=== PATIENT | female | born 1955 | race Caucasian/White ===

== ENCOUNTER → 2017-08-12 | Outpatient (CLI) | payer OTHER ==
[~2017-08-12] MED LIST: ASPI81TA85 PO; CALC500T49 PO; COLA100C5 PO; HYDR-3713 PO; MULT1TAB9 PO; PERC5TAB12 PO; RAMI25CA PO; SALONPAS PAIN TOP; SIMV20TA2 PO; TYLE325T5 PO; ZYRT10CA PO; [UNRECOGNIZED DRUG - CODE] PO
--- NOTE | 2017-08-12 15:03 | REPMRS ---
Patient History The patient states she had a clinical breast exam in 09/22 Patient is postmenopausal and is nulliparous. No known family history of cancer. Took hormonal contraceptives for 1 year. Taking estrogen for 7 years. Digital Woman Screen Mammo: August 12, 2017 - Exam #: [id number] Bilateral CC and MLO view(s) were taken. Technologist: Scarlet Álvarez, Technologist Prior study comparison: August 10, 2016, digital woman screen mammo performed at [facility]. July 31, 2015, digital woman screen mammo performed at [facility]. July 16, 2014, bilateral bilat screen digital mammo, performed at [facility] ([facility]). July 07, 2013, bilateral bilat screen digital mammo, performed at [facility] ([facility]). FINDINGS: The breast tissue is heterogeneously dense. This may lower the sensitivity of mammography. There has been no change in the appearance of the mammogram from the prior studies. There is a moderate amount of residual fibroglandular tissue which is fairly symmetric. There is no interval development of dominant mass, architectural distortion, or clustered microcalcification typical of malignancy. Scattered lymph nodes are seen in the left axilla. A few coarse benign appearing calcifications are present. No significant changes when compared with prior studies. ASSESSMENT: BI-RADS/ACR category 2 mammogram. Benign finding(s). Recommendation Routine screening mammogram in 1 year (for women over age 40). This mammogram was interpreted with the aid of an FDA-approved computer-aided dectection system. A. Negative x-ray reports should not delay biopsy if a dominant or clinically suspicious mass is present. B. Four to eight percent of cancers are not identified by mammography. C. Adenosis and dense breast may obscure an underlying neoplasm. Electronically Signed By: Shaun Larson MD 08/12/17 [id number]
== END ==
LOC: M WHC 13:19
PROVIDERS: ATTEND Obstetrics & Gynecology
DX: Z12.31 Encounter for screening mammogram for malignant neoplasm of breast (principal); R92.8 Other abnormal and inconclusive findings on diagnostic imaging of breast; Z78.0 Asymptomatic menopausal state; Z92.0 Personal history of contraception; Z79.890 Hormone replacement therapy

== ENCOUNTER 2018-01-10 12:26 | Day surgery (SDC) | payer OTHER ==
[2018-01-10] MEDS: NS 1,000 ML IV (12:45)
[2018-01-10] MEDS ORDERED: PROPOFOL 200 MG/20 ML VIAL As Ordered (13:52)
== END 2018-01-10 14:51 | disposition home or self-care (01) ==
LOC: M OPP 12:26
DX: Z12.11 Encounter for screening for malignant neoplasm of colon (principal); D12.5 Benign neoplasm of sigmoid colon; D12.3 Benign neoplasm of transverse colon; K64.0 First degree hemorrhoids; K57.30 Diverticulosis of large intestine without perforation or abscess without bleeding; I10 Essential (primary) hypertension; E78.5 Hyperlipidemia, unspecified; M54.30 Sciatica, unspecified side; Z87.442 Personal history of urinary calculi; Z79.82 Long term (current) use of aspirin; Z79.899 Other long term (current) drug therapy; Z87.891 Personal history of nicotine dependence
CPT/HCPCS: 45385

== ENCOUNTER → 2018-08-15 | Outpatient (CLI) | payer OTHER | LOC: M WHC 09:49 | DX: Z12.31 Encounter for screening mammogram for malignant neoplasm of breast (principal); Z78.0 Asymptomatic menopausal state; Z92.0 Personal history of contraception; Z92.23 Personal history of estrogen therapy | CPT/HCPCS: 77067 ==

== ENCOUNTER → 2018-11-09 | Outpatient (REF) | payer OTHER ==
[~2018-11-09] MED LIST changes: +ASPI1TAB PO; +ESTR1DIS3; +FLON1SPR; +OLOP0.1D OU; +PRESCAP6; +RAMI1CAP22 PO; -RAMI25CA PO
[2018-11-09 20:45] LABS: BACTERIA, URINE AUTO 1+ (NEGATIVE); MUCUS, URINE SMALL (NEGATIVE); RBC, URINE AUTO 3 /HPF (0-3); SQUAMOUS EPITHELIAL CELL UR AU 1 /HPF (0-6); WBC, URINE AUTO 1 /HPF (0-3)
== END ==
LOC: M LAB REF 16:07
PROVIDERS: ATTEND Internal Medicine
DX: R31.9 Hematuria, unspecified (principal)

== ENCOUNTER → 2018-11-30 | Outpatient (CLI) | payer OTHER ==
--- NOTE | 2018-12-06 08:29 | DEXA ---
AP SPINE L1 - L4 1.280 0.7 2.0 LT FEMUR TOTAL 0.866 -1.1 -0.2 LT NECK 0.776 -1.9 -0.6 RT FEMUR TOTAL 0.883 -1.0 0.0 RT NECK 0.833 -1.5 -0.2 TOTAL BODY TOTAL OTHER COMMENTS: Normal bone densitometry of the spine. There is low bone density of the hips. The density of the spine has increased 6.7% since 07/16/2014. The density of the left hip has increased 5.6% since 07/16/2014. The density of the right hip has increased 2.8% since 07/16/2014. The increased density of the spine does represent a significant change. The increased density of the left hip does represent a significant change. The increased density of the right hip does represent a significant change. FOLLOW-UP: Recommendation for the next bone density exam: 2 years. MARIA GUADALUPE
== END ==
LOC: M WHC 12:57
PROVIDERS: ATTEND Internal Medicine
DX: Z13.820 Encounter for screening for osteoporosis (principal); M85.89 Other specified disorders of bone density and structure, multiple sites

== ENCOUNTER → 2019-09-07 | Outpatient (CLI) | payer OTHER ==
[~2019-09-07] MED LIST changes: -ASPI1TAB PO; +ASPI81TA26 PO; -SIMV20TA2 PO; +SIMV20TA22 PO
--- NOTE | 2019-09-07 11:25 | REPMRS ---
Patient History The patient states she had a clinical breast exam in 2018. No known family history of cancer. Took hormonal contraceptives for 1 year. Taking estrogen for 8 years. Digital Woman Screen Mammo: September 07, 2019 - Exam #: [id number] Bilateral CC and MLO view(s) were taken. Technologist: Alia De, Technologist Prior study comparison: August 15, 2018, bilateral digital woman screen mammo performed at [facility]. August 12, 2017, digital woman screen mammo performed at [facility]. August 10, 2016, digital woman screen mammo performed at [facility]. July 31, 2015, digital woman screen mammo performed at [facility]. July 16, 2014, bilateral bilat screen digital mammo, performed at [facility] ([facility]). July 07, 2013, bilateral bilat screen digital mammo, performed at [facility] ([facility]). FINDINGS: The breast tissue is heterogeneously dense. This may lower the sensitivity of mammography. There is equivocal area of architectural distortion adjacent to a benign calcification in the right breast at approximate 12 o'clock position. This merits further evaluation. There is a moderate amount of heterogeneously dense fibroglandular tissue which is fairly symmetric. There is no other interval development of dominant mass, architectural distortion, or grouped microcalcification typical of malignancy. There has been no other change in the appearance of the mammogram from the prior studies. 3-D tomosynthesis shows no additional findings. Assessment: BI-RADS/ACR category 0 mammogram, Incomplete: Need additional imaging evaluation and/or prior mammograms for comparison. Recommendation Ultrasound and special view mammogram of the right breast. This patient's Lifetime Breast Cancer RIsk is estimated at 8.8 %. This mammogram was interpreted with the aid of an FDA-approved computer-aided dectection system. Electronically Signed By: Arron Waddell MD 09/07/19 [id number]
== END ==
LOC: M WHC 10:07
PROVIDERS: ATTEND Obstetrics & Gynecology
DX: Z12.31 Encounter for screening mammogram for malignant neoplasm of breast (principal); R92.8 Other abnormal and inconclusive findings on diagnostic imaging of breast; R92.1 Mammographic calcification found on diagnostic imaging of breast

== ENCOUNTER → 2019-09-15 | Outpatient (CLI) | payer OTHER ==
--- NOTE | 2019-09-15 18:27 | REP ---
Digital diagnostic unilateral right breast mammography with CAD, 3-D tomography, and focused right breast sonography. History: Screening mammography from September 07, 2019 was BIRADS category zero incomplete because of a possible area of spiculation or some area of spiculation or architectural distortion in the right breast. Diagnostic imaging was recommended. Comparison mammography is also from August 2017 and August 25, 2018. Mammographic findings: Magnified focal spot compression views were obtained. A non magnified true MLO with 3-D tomography was acquired. Rolled craniocaudad views were acquired. The craniocaudal views demonstrate an area of spiculation at approximately 12 o'clock position in the right breast centrally corresponding to the screening mammographic findings: This is less well seen on the orthogonal views. 3-D tomographic images from the true mediolateral projection demonstrate an area of apparent spiculation superiorly. Sonographic findings: The right breast is scanned about the 12 o'clock position. Heterogeneous fibroglandular background echotexture is seen. There is an ill-defined area of acoustic shadowing hypoechoic tissue at 12 o'clock which is felt to most likely correspond with the mammographic findings. Impression: BIRADS category four suspicious right breast imaging. Recommend ultrasound guided needle biopsy, marker clip placement, and post clip placement mammography. This mammogram was interpreted with the aid of an FDA-approved computer-aided detection system. The patient states she had a clinical breast exam in September of 2018. The patient letter being requested is m4. This patient's estimated Tyrer-zick lifetime risk assessment for the breast cancer is 8.8 %. Electronically Signed by José Miguel Waddell MD 09/16/2019 05:36 A
== END ==
LOC: M RAD 14:00
PROVIDERS: ATTEND Obstetrics & Gynecology
DX: Z12.31 Encounter for screening mammogram for malignant neoplasm of breast (principal)

== ENCOUNTER → 2019-09-27 | Outpatient (CLI) | payer OTHER ==
[2019-09-27 16:10] VITALS: BP 158/88
--- NOTE | 2019-09-27 17:46 | POST-OPPD ---
Postoperative Procedure Note Date Of Procedure: Sep 27, 2019 Time Of Procedure: 16:00 PREOPERATIVE DIAGNOSIS: right breast mammographic architectural distortion POSTOPERATIVE DIAGNOSIS: right breast mammographic architectural distortion FINDINGS: postbiopsy clip noted in expected position, hemostasis achieved PROCEDURE: Right breast stereotactic biopsy and clip placement SURGEON: Keven Greer CANDY CUTTER MACHINE: Dr José Miguel Waddell ANESTHESIA: local anesthetic 13 cc SPECIMENS: Right breast biopsy ESTIMATED BLOOD LOSS: 1 ml DRAINS: none COMPLICATIONS: none POSTOPERATIVE CONDITION: stable KEVEN GREER DO Sep 27, 2019 17:46
--- NOTE | 2019-09-27 19:30 | ROOPDOC ---
[facility] Report Of Operation Report of Operation DATE OF PROCEDURE: 09/27/19 PREPROCEDURE DIAGNOSES: right breast architectural distortion POSTPROCEDURE DIAGNOSES: right breast architectural distortion PROCEDURE: Right breast stereotactic biopsy SURGEON: Keven Calles PASSENGER RELATIONS REPRESENTATIVE: Dr José Miguel Waddell ANESTHESIA: local anesthetic 13 cc ESTIMATED BLOOD LOSS: Approximately 1 mL. COMPLICATIONS: none REMARKS: clip seen in expected position in the right breast DESCRIPTION OF PROCEDURE: Lidocaine 1% [id number] Expiration 01/2023 Sodium Bicarbonate 8.4% LOT [id number] Expiration 05/2021 Hydromark clip Bx device: Stereotactic Mammotome 10 G Informed consent was obtained in the preop area. The most common risk and possible complications including bleeding, hematoma, bruising, infection, injury to surrounding structures were explained to the patient and she expressed understanding. Patient was taken to the procedure room and placed prone on the [employer] [facility] Breast Biopsy table with the right breast hanging through the table aperture. Right breast was placed into Medio-Lateral compression and Cafeteria [employer] Lunch[employer] ronak images were taken. Suspicious architectural distortion was identified on the ronak images and target was set. At this time, since we were able to confirm visibility of the suspicious architectural distortion and patient tolerated prone positioning allowing to proceed with the biopsy, appropriate time out was done stating patients name, date of , and the procedure to be performed. The right breast in ML compression was prepped in the usual fashion. Plain Lidocaine 1% and 8.4% sodium bicarbonate 10:1 mix was used to numb the skin, the biopsy site and tissues along the anticipated biopsy tract. Small skin incision was made with blade number 11. Mammotome 10 G stereotactic breast biopsy device was inserted through the incision and advanced to the previously set coordinates marking the target lesion. Pre-fire imaging was taken to assure appropriate positioning. At this time, Mammotome 10 G breast biopsy device was fired and 7 vacuum assisted biopsies were collected. The biopsy samples were investigated with [employer] system and tissue of various density was observed. No calcifications were seen. Biopsy samples were then placed in the formaldehyde, marked with patients name and right breast biopsy site, and sent to pathology for evaluation. Hydromark clip was placed into the Mammotome biopsy device channel and deployed. Post-deployment imaging was done to assure appropriate clip deployment. Clip was noted in the right breast. At this point, paddle ML compression of the right breast was released and manual pressure was held to decrease harmonic effect and to assure hemostasis. No bleeding was noted upon removal of the pressure. Patient was slowly repositioned and placed into sitting position, and then assisted off the table. Post-biopsy mammogram of the right breast was obtained and showed clip in expected position. Postprocedural dressing was placed. Patient tolerated procedure well and was taken to the recovery unit in stable condition. Discharge instructions were discussed with the patient and she expressed understanding. KEVEN Maldonado DO Sep 27, 2019 19:30
--- NOTE | 2019-09-28 17:02 | REP ---
Digital diagnostic unilateral right breast mammography with CAD: Two views. History: Marker clip placement views. The patient is status post stereotactic needle biopsy of the right breast for focal architectural distortion. Comparison mammography September 15, 2019. Findings: Mediolateral and craniocaudal views of the right breast demonstrate that the marker clip is seen immediately adjacent to the area of spiculated density in good position. There is no evidence hematoma. Impression: Marker clip in good position relative to the spiculated density. Electronically Signed by José Miguel Waddell MD 09/28/2019 05:57 P
== END ==
LOC: M WHCPRO 14:10
PROVIDERS: ATTEND Surgery
DX: N60.11 Diffuse cystic mastopathy of right breast (principal); N60.21 Fibroadenosis of right breast; R92.1 Mammographic calcification found on diagnostic imaging of breast

== ENCOUNTER → 2019-09-29 | Outpatient (CLI) | payer OTHER ==
--- NOTE | 2019-09-29 18:54 | REP ---
Soft-tissue ultrasound right neck. History: Right neck palpable mass. Right supraclavicular mass. Lymphadenopathy. No comparison imaging. Findings: Scanning through the right neck demonstrates multiple lymph nodes palpable lump is in the right supraclavicular region. No lymphadenopathy is seen at the location where the patient points out the lump. A little higher in the cervical region, there are several lymph nodes, the largest lymph node is seen measuring 1.8 x 0.8 x 1.0 cm. This is somewhat hypertrophied. Its cortex is somewhat hypoechoic. Two other lymph nodes are seen in the region measuring as follows: 0.9 x 0.4 x 0.7 and 1.4 x 0.5 x 1.0 cm. Impression: There are several visible lymph nodes which appear slightly hypertrophied. No sonographic abnormality is seen where the patient points out a palpable lump in the right neck. Consider soft-tissue neck CT study with IV contrast.
== END ==
LOC: M WHC 12:55
PROVIDERS: ATTEND Surgery
DX: R59.0 Localized enlarged lymph nodes (principal)

== ENCOUNTER → 2019-10-04 | Outpatient (REF) | payer OTHER ==
[2019-10-04 18:20] LABS: APPEARANCE, URINE CLEAR (CLEAR); BACTERIA, URINE AUTO 1+ (NEGATIVE); BILIRUBIN, URINE AUTO NEGATIVE (NEGATIVE); BLOOD, URINE BLOOD 2+ (NEGATIVE); COLOR, URINE STRAW (YELLOW); GLUCOSE, URINE (UA) AUTO NEGATIVE (NEGATIVE); KETONE, URINE AUTO NEGATIVE (NEGATIVE); LEUKOCYTE ESTERASE, URINE AUTO NEGATIVE (NEGATIVE); NITRITE, URINE AUTO NEGATIVE (NEGATIVE); PROTEIN, URINE AUTO NEGATIVE (NEGATIVE); RBC, URINE AUTO 2 /HPF (0-3); SPECIFIC GRAVITY URINE AUTO 1.003 (1.002-1.035); SQUAMOUS EPITHELIAL CELL UR AU 0 /HPF (0-6); UROBILINOGEN, URINE AUTO 0.2 mg/dL (0.0-2.0); WBC, URINE AUTO 0 /HPF (0-3)
== END ==
LOC: M LAB REF 16:54
PROVIDERS: ATTEND Obstetrics & Gynecology
DX: N39.0 Urinary tract infection, site not specified (principal)

== ENCOUNTER → 2019-10-06 | Outpatient (CLI) | payer OTHER ==
[~2019-10-06] MED LIST changes: +ISOVUE-370 76% 100ML VIAL (Q9967) As Ordered ONE
--- NOTE | 2019-10-06 10:32 | REPVR ---
PROCEDURE INFORMATION: Exam: CT Neck With Contrast Exam date and time: 10/06/2019 9:51 AM Age: 63 years old Clinical indication: Other: Mass; Additional info: Neck mass RT side TECHNIQUE: Imaging protocol: Computed tomography images of the neck with intravenous contrast. Radiation optimization: All CT scans at this facility use at least one of these dose optimization techniques: automated exposure control; mA and/or kV adjustment per patient size (includes targeted exams where dose is matched to clinical indication); or iterative reconstruction. Contrast material: Isovue 370; Contrast volume: 75 ml; Contrast route: IV; COMPARISON: US SOFT TISSUE HEAD AND NECK 09/29/2019 1:04 PM FINDINGS: Sinuses: A cyst/polyp is present in the inferior right maxillary sinus. Nasopharynx: Unremarkable. Oropharynx: Unremarkable. No significant tonsillar enlargement. Hypopharynx: Unremarkable Larynx: Unremarkable. Normal epiglottis. Retropharyngeal space: Unremarkable. Submandibular/Parotid glands: Normal. Glands are normal in size. Thyroid: Normal. No enlarged or calcified nodules. Lymph nodes: Right supraclavicular lymph node measuring 13.7 by 12.8 mm short axis, 18.5 mm length Trachea: Visualized trachea is unremarkable. Lungs: Unremarkable as visualized. Bones/joints: No destructive bony process identified. 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 Slight C3-C4 anterolisthesis. Mild C4-C5 and C6-C7 spondylosis. Moderate C5-C6 spondylosis. Severe right C3-C4 and C5, left C5-C6 and C right C6-C7 neural foraminal stenosis. Soft tissues: No significant soft tissue swelling. IMPRESSION: Nonspecific right supraclavicular lymphadenopathy. Electronically signed by: Bishnu Quach On 10/06/2019 10:32:28 AM
== END ==
LOC: M RAD 09:29
PROVIDERS: ATTEND Surgery
DX: R22.1 Localized swelling, mass and lump, neck (principal)
CPT/HCPCS: 70491; Q9967

== ENCOUNTER → 2019-10-12 | Outpatient (CLI) | payer OTHER ==
[~2019-10-12] MED LIST changes: -ISOVUE-370 76% 100ML VIAL (Q9967) As Ordered ONE; +LIDOCAINE 1% MDV 20ML VIAL As Ordered ONE
[2019-10-12 12:59] VITALS: BP 200/88
--- NOTE | 2019-10-12 13:35 | REP ---
DIGITAL DIAGNOSTIC UNILATERAL RIGHT BREAST MAMMOGRAPHY WITH CAD: Two views. HISTORY: Marker clip placement view. The patient status post repeat stereotactic needle biopsy for a focal area of architectural distortion in the 12-o'clock position in the right breast. Comparison is made with post clip placement views from the first stereotactic biopsy dated 09/27/2019. MAMMOGRAPHIC FINDINGS: A second HydroMARK clip is noted in place. This is was somewhat superficially located, proximally 2.5 cm above the area of the architectural distortion on the mammogram on the true lateromedial view. No hematoma is seen. IMPRESSION: Today's marker clip is somewhat superficially positioned although the tract and the biopsy cavity appear appropriate to the architectural distortion. Electronically Signed by José Miguel Waddell MD 10/12/2019 02:39 P
--- NOTE | 2019-10-12 13:37 | REP ---
SPECIMEN RADIOGRAPH, RIGHT BREAST. HISTORY: The patient is status post stereotactic needle biopsy right breast for focal architectural distortion. There were no microcalcifications on the diagnostic mammography. FINDINGS: Specimen radiography shows no evidence of microcalcification. This is to be expected as there were no microcalcifications in the target lesion. Electronically Signed by José Miguel Waddell MD 10/12/2019 02:39 P
--- NOTE | 2019-10-13 08:24 | REP ---
STEREOTACTIC RIGHT BREAST BIOPSY The procedure was performed under the direct supervision of Dr. Waddell The patient has a history of an area of spiculation at approximately the 12 o'clock position in the right breast centrally seen on a previous mammogram dated 09/15/2019. This was biopsied stereotactically on 09/27/2019. The patient is referred for rebiopsy. The risks and benefits of the procedure were explained to the patient and informed consent was obtained. A craniocaudal approach was utilized. The area of architectural distortion was localized using stereotactic mammographic guidance. 1% Xylocaine was used as a local anesthetic. An 10 gauge, suction assisted Mammotome needle was inserted and 6 core biopsy samples were obtained. A marker clip was placed at the biopsy site. The patient tolerated the procedure well and there were no immediate complications. After the appropriate amount of monitored convalescence, the patient was discharged from the department. Electronically Signed by GUILLAUME Pettit 10/12/2019 05:41 P Electronically Signed by José Miguel Waddell MD 10/13/2019 08:14 A
== END ==
LOC: M IRPRO 10:18
PROVIDERS: ATTEND Surgery
DX: N60.81 Other benign mammary dysplasias of right breast (principal); N64.1 Fat necrosis of breast

== ENCOUNTER → 2019-11-02 | Outpatient (REF) | payer OTHER ==
[~2019-11-02] MED LIST changes: -LIDOCAINE 1% MDV 20ML VIAL As Ordered ONE
== END ==
LOC: M LAB REF 13:35
PROVIDERS: ATTEND Otolaryngology
DX: R22.1 Localized swelling, mass and lump, neck (principal)

== ENCOUNTER → 2019-11-06 | Outpatient (CLI) | payer OTHER ==
[~2019-11-06] MED LIST changes: +CRAN450T4 PO; +HM S0.65; +HYDR12.55 PO; +MULTCAP PO; +PRESCAP PO; +RAMI1CAP26 PO; +SALOPAD4 TP; +VIVE0.05 TD; +ZYRTTAB8 PO; +[UNRECOGNIZED DRUG - CODE] PO
--- NOTE | 2019-11-06 11:56 | REPPI ---
CHEST, TWO VIEWS: There is no evidence of acute infiltrate. No pleural effusion is seen. The heart is normal in size. The mediastinal silhouette is unremarkable. The visualized osseous structures are intact. There are degenerative changes of the spine. IMPRESSION: No acute pulmonary disease. Electronically Signed by Emilio Vu MD 11/06/2019 01:36 P
== END ==
LOC: M PLAIMG 10:53
PROVIDERS: ATTEND Surgery
DX: Z01.811 Encounter for preprocedural respiratory examination (principal)

== ENCOUNTER 2019-11-17 06:38 | Day surgery (SDC) | payer OTHER ==
--- NOTE | 2019-11-08 10:59 | CR ---
DATE OF CONSULTATION: 11/06/2019 PREOPERATIVE CONSULTATION FOR: Dr. Calles for right breast excisional biopsy. Dear Dr. Calles: Thank you for asking me to see Ms. Negin Bailey in consultation prior to her right breast excisional biopsy. As you know, Ms. Bailey is a 63-year-old female with past medical history of hypertension, hyperlipidemia, obesity, reporting that she has been in her usual state of good health except for increasing anxiety regarding the evaluation of her breast lump and right neck lymphadenopathy. Patient reports first mammogram was in September. She has had two biopsies showing atypical ductal hyperplasia and will now proceed with excisional biopsy after getting cleared from ear, nose, and throat (ENT) after having had a biopsy November 13 of a lymph node. Patient reports otherwise she has felt well. She denies any fevers or chills, chest pain, or shortness of breath. She has a history of low back pain. This has been chronic and stable. She has a history of cold sores and requests a fill of her Valtrex as she expects her stress will give her a flare. The patient notes her blood pressures have been elevated during this evaluation, and she believes it is secondary to her anxiety. She is compliant with her ramipril [address] Calles has recommended patient discontinue her estrogen patch. Patient has discussed this with Dr. Mcintosh and is changing her Vivelle-Dot once a week instead of twice a week. She is having an increase in hot flashes. PAST MEDICAL HISTORY: 1. Total abdominal hysterectomy-bilateral salpingo-oophorectomy (ARYAN-BSO) 11/2004 for menorrhagia. 2. Infertility. 3. Paracervical fracture as a child. 4. Trichomonas. 5. Tobacco abuse, quit 2011 after smoking 4-5 cigarettes for 25 years. Relapse in 2016, and quit again in 2017. 6. Hyperlipidemia. 7. Seasonal allergies. 8. Obesity. 9. Menstrual migraines. 10. Hypertension. 11. Diverticulosis. 12. Hiatal hernia. 13. Nephrolithiasis. 14. Osteopenia. ALLERGIES: She has drug allergy to ESTRACE with contact dermatitis. MEDICATIONS: Her medications are: - baby aspirin daily - Astepro nasal spray as needed - fluticasone nasal spray as needed - multivitamin daily - neti pot as needed - ramipril 10 mg daily - Salonpas as needed - simvastatin 20 mg daily - Valtrex 500 mg twice a day as needed outbreaks - Vivelle-Dot 0.05 mg (she is now changing this weekly instead of twice a week) - Zyrtec 10 mg daily as needed FAMILY HISTORY: Father of lung cancer at 69; he was a heavy smoker. Mother had Crohn disease, hypertension. A brother hypertension. Another brother hyperlipidemia. Another brother low back pain, seasonal allergies. Grandparents had kidney disease and stroke. SOCIAL HISTORY: Patient is a former smoker, as above, but quit 08/31/2017. She consumes four glasses of wine a week. She is happily . PHYSICAL EXAMINATION: Overweight female, appearing slightly anxious but in no acute distress. Her weight is 214 with a body mass index (BMI) of 34.5. Oxygen (O2) saturation is 94%. Blood pressure 166/82, recheck 150/82. Heart rate 64. HEENT examination: Head is normocephalic. Pupils equal, reactive to light. Extraocular movements are intact. She has an upper lip scar from previous surgery. Her neck is supple. No thyromegaly. She does have a right cervical lymphadenopathy. Well-healed biopsy site. Carotids are 2+ without bruits, and there is no jugular venous distention (JVD). Respiratory: Clear to auscultation. Resonant to percussion. Breast examination: Mild diffuse fibroglandular breast disease with good healing at biopsy site. Cardiovascular: Soft systolic murmur. Regular rate, rhythm. Abdomen: Obese. Normoactive bowel sounds. Soft, nontender. No hepatosplenomegaly. Extremities: No cyanosis, clubbing, or edema. Neurologically, alert and oriented. Cranial nerves II-XII are intact. LABORATORY DATA: EKG 11/06/2019: Sinus bradycardia with a heart rate of 59, axis of -5, normal VT, QRS, QTc, normal R-wave progression, no atrial or ventricular hypertrophy. No change from previous EKGs. Laboratories from 11/06/2019: The patient has a normal CBC, magnesium, med profile, liver panel, lipid, thyroid, UA. IMPRESSION: Ms. Negin Bailey, a 63-year-old female with cardiovascular risk factors positive for age, hypertension, hyperlipidemia, has no signs or symptoms indicative of cardiovascular ischemia and is felt to be at low risk for cardiovascular complications from the proposed surgical intervention. Risks can be further minimized by: 1. Hypertension. Take ramipril as usual evening prior to surgery. Hydrochlorothiazide will be added at this time to improve blood pressure control further. She will be seen in 1 week with electrolytes and re-evaluation of blood pressure control. She will not take hydrochlorothiazide morning of surgery. 2. Hyperlipidemia. Continue statin perioperatively. I have asked her to hold aspirin until time of surgery. 3. Menopausal. Continue to wean off hormone replacement therapy (HRT) per her manufacturing sr engineer. 4. Hyperglycemia, resolved. 5. Nephrolithiasis. Continue to push fluids perioperatively. 6. Obesity. Addressing, more stable. 7. Allergic rhinitis. Continue as-needed nasal sprays and Zyrtec. 8. Low back pain. Presently well controlled. Thank you very much for this consultation. The patient will be seen in 1 week, and an addendum will be dictated at that time as hydrochlorothiazide has been added to improve her blood pressure control further. Thank you.
[~2019-11-17] VITALS: Ht 170.2 cm; Wt 97.1 kg
[~2019-11-17 06:38] MED LIST changes: +LR 1,000 ML IV ONE
[2019-11-17] MEDS ORDERED: LIDOCAINE 1% SDV INJ 30 ML VIAL As Ordered ONE (07:23)
[2019-11-17] MEDS ORDERED: BUPIVACAINE HCL 0.25% 30 ML VIAL As Ordered ONE (07:23)
[2019-11-17] MEDS ORDERED: ceFAZolin SOD 2 GM in IV 1 EA IV ONE (07:45)
[2019-11-17] MEDS ORDERED: HEPARIN SOD (PORCINE) 5000 UNITS/ML VIAL (J1644 PER 1000UNITS) SQ ONE (07:45)
[2019-11-17] MEDS ORDERED: propofoL 200 MG/20 ML VIAL As Ordered ONE ×3 (08:43→10:17)
[2019-11-17] MEDS ORDERED: LIDOCAINE 2% INJ 100 MG/5 ML SDV (FOR ANES.) As Ordered ONE (08:43)
[2019-11-17] MEDS ORDERED: ONDANSETRON 4MG/2ML VIAL (J2405) As Ordered ONE (08:43)
[2019-11-17] MEDS ORDERED: fentaNYL 100 MCG/2 ML INJECTION (J3010) As Ordered ONE ×2 (08:43→11:10)
[2019-11-17] MEDS ORDERED: MIDAZOLAM INJ 2 MG/2 ML VIAL (J2250) As Ordered ONE (08:43)
[2019-11-17] MEDS ORDERED: dexameTHASONE 4 MG/ML 1ML VIAL (J1100) As Ordered ONE (08:43)
[2019-11-17] MEDS ORDERED: ACETAMINOPHEN 1000MG 100ML IV BTL (OFIRMEV) (J0131 PER 10MG) As Ordered ONE (08:43)
[2019-11-17] MEDS ORDERED: KETAMINE HCL 200 MG/20 ML VIAL As Ordered ONE (10:00)
[2019-11-17] MEDS ORDERED: ULTR50TA8 PO (11:47)
[2019-11-17 12:20] VITALS: BP 175/80
--- NOTE | 2019-11-17 22:33 | ROOPDOC ---
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 ESTIMATED BLOOD LOSS: Approximately 5 mL. COMPLICATIONS: None. REMARKS: Specimen contains 1 clip and the wire. The second clip was visualized during the dissection and removed from the specimen.. DESCRIPTION OF PROCEDURE: INDICATIONS: Ms. Bailey is a 63 year old woman who was recently diagnosed with right breast atypical ductal hyperplasia, intraductal papilloma and radial scar via two separate stereotactic biopsies done because architectural distortion was seen on her screening mammogram. Two separate hydrmark clips were placed. Excisional biopsy was recommended. Patient was medically cleared for surgery by her primary care doctor. Risks and possible complications of surgical procedure including bleeding, infection and injury to surrounding structures were explained to the patient and she wished to proceed. Consent was signed. My initials were placed on the operative site (right). Subcutaneous injection of 5000 units of heparin was done in Preop. DETAILS: Patient was taken to the operating room and placed on the operating room table. A sign in was called stating patients name, date of and the procedure to be done. Preoperative antibiotics were infused. Smooth induction of MAC anesthesia was done. Patients hands were extended on armrests. Care was taken not to over extend the arms. Procedure was started with right breast intraop wire localization. Appropriate time out was done and patients name, date of , and the procedure to be done were confirmed. Right breast was cleaned by me. Intraoperative ultrasound was used to confirm location of the two Hydromark clips. Location of the clips was marked on the skin as well. Local anesthetic using 1% lidocaine and 0.25 % Marcaine 50/50 mix was injected along the anticipated wire track using ultrasound guidance. 21 G BioPheresiss Breast Lesion Localization Needle was used to place 25 cm wire through the lesion. The wire was placed through deeper of the two Hydromark clips. The images were captured confirming adequate placement of the localizing wire. Lumber Planer assisted with the wire placement. Next, patients right breast was prepped and draped in the usual fashion. Care was taken not to displace the wire. Appropriate time out was done again prior second part of the procedure. Patients name, date of , and the procedure to be done were confirmed. Local anesthetic using 1% lidocaine and 0.25 % Marcaine 50/50 mix was injected at the site of planned incision. An superior periareolar incision was made with the scalpel. Subcutaneous skin flaps were raised and the guide wire was carefully pulled into the wound. Dissection was carries along the wire until the previously marked on the skin area of target lesion location was encountered. At this point, wider excision of the tissue surrounding the wire was done. The both Hydromark clips were identified in the tissue with intraoperative hockey stick ultrasound probe. The end of the wire was identified with palpation. The more superficial clip with the gel cylinder became visible during the manipulation if the tissue. It was removed from the specimen since there was a risk of losing it in the tissues. During dissection firmer tissue was identified on the medial aspect of the excisional biopsy. This tissue was included in the specimen. The excisional biopsy specimen was carefully removed from the breast keeping its proper orientation and moved to the back table where margins were marked with the surgical inking kit following the standard colors recommendations. Specimen was then placed on the grid and placed in [employer] Specimen Imaging System. The image revealed the wire and one of the Hydromark clips in the specimen as the other Hydromark clip was removed from the specimen previously. The specimen was labeled with patients name and right excisional biopsy and sent to pathology. At this point wound was irrigated and adequate hemostasis was achieved. space was approximated with 3-0 Vicryl. The dermis was closed with 3-0 Monocryl and skin was closed with 4-0 Monocryl. Steri strips were placed over the incision. Sponge and instrument counts were done and were correct. Patient emerged from the anesthesia without any problems. Fluffs were placed over the operative site and patients chest was wrapped snuggly in the PABLO wrap. Patient tolerated procedure well and was taken to recovery unit in stable condition. KEVEN GREER DO Nov 17, 2019 11:42
--- NOTE | 2019-11-20 08:42 | REP ---
Specimen radiography right breast. History: Needle localization procedure excisional biopsy. Comparison mammography October 12, 2019. Findings: Specimen radiography demonstrates a hydro nadira clip adjacent to the localizer wire. Adjacent to this as evidence of architectural distortion and a benign ring-like calcification which was immediately adjacent to the architectural distortion on both mammographic views. IMPRESSION: Specimen radiography shows findings consistent with successful excision of the architectural distortion lesion and the marker clip. Electronically Signed by José Miguel Waddell MD 11/20/2019 11:30 A
--- NOTE | 2019-11-20 10:03 | REP ---
RIGHT BREAST SONOGRAPHY: HISTORY: Ultrasound guidance. Needle localization procedure. FINDINGS: Sonographic guidance is provided Dr. Calles who performed needle wire localization procedure. Electronically Signed by José Miguel Waddell MD 11/20/2019 12:35 P
== END 2019-11-17 12:27 | disposition home or self-care (01) ==
LOC: M SDC 06:38
PROVIDERS: ATTEND Surgery
DX: N60.81 Other benign mammary dysplasias of right breast (principal); R92.0 Mammographic microcalcification found on diagnostic imaging of breast; N60.21 Fibroadenosis of right breast; I10 Essential (primary) hypertension; E78.5 Hyperlipidemia, unspecified; M54.5 Low back pain; K44.9 Diaphragmatic hernia without obstruction or gangrene; J30.2 Other seasonal allergic rhinitis; K57.90 Diverticulosis of intestine, part unspecified, without perforation or abscess without bleeding; M85.80 Other specified disorders of bone density and structure, unspecified site; Z86.19 Personal history of other infectious and parasitic diseases; Z87.891 Personal history of nicotine dependence; Z79.899 Other long term (current) drug therapy; Z79.82 Long term (current) use of aspirin; Z87.440 Personal history of urinary (tract) infections; Z88.8 Allergy status to other drugs, medicaments and biological substances
CPT/HCPCS: 19125; 76098; 76942; 88307; 88341; 88342; J0131; J0690; J1100; J1644; J2250; J2405; J3010

== ENCOUNTER → 2020-03-01 | Outpatient (REF) | payer OTHER ==
[~2020-03-01] MED LIST changes: -LR 1,000 ML IV ONE; +ULTR50TA8 PO
[2020-03-01 15:04] LABS: BLOOD UREA NITROGEN 17 MG/DL (7-18); CALCIUM LEVEL 9.4 MG/DL (8.8-10.2); CARBON DIOXIDE LEVEL 26 MEQ/L (21-32); CHLORIDE LEVEL 108 MEQ/L (98-107); CREATININE FOR GFR 0.95 MG/DL (0.55-1.30); GLOMERULAR FILTRATION RATE > 60.0 (>45); GLUCOSE, FASTING 88 MG/DL (70-100); POTASSIUM SERUM 4.5 MEQ/L (3.5-5.1); SODIUM LEVEL 139 MEQ/L (136-145)
== END ==
LOC: M PLALAB 13:29
PROVIDERS: ATTEND Surgery
DX: N60.91 Unspecified benign mammary dysplasia of right breast (principal); Z12.39 Encounter for other screening for malignant neoplasm of breast

== ENCOUNTER → 2020-03-07 | Outpatient (CLI) | payer OTHER ==
[~2020-03-07] MED LIST changes: +PROHANCE 279.3MG/ML 15ML VIAL As Ordered ONE; +PROHANCE 279.3MG/ML 5ML VIAL As Ordered ONE
--- NOTE | 2020-03-07 16:03 | REP ---
BILATERAL BREAST MRI STUDY WITHOUT AND WITH IV GADOLINIUM: HISTORY: High risk breast cancer screening. The patient had architectural distortion visible in the right breast mammographically on screening mammogram from September 07, 2019. Subsequent ultrasound-guided and stereotactically guided needle biopsies showed atypical ductal hyperplasia and radial scar along with sclerosing adenosis. A needle localization directed excisional biopsy showed atypical ductal hyperplasia. TECHNIQUE: 3 Emma MRI imaging was performed with a dedicated breast coil. Axial, coronal, and sagittal T1 and T2-weighted scans were obtained with and without fat saturation in the usual fashion. The study includes dynamically acquired post gadolinium enhanced imaging subtraction imaging. Maximal intensity projection and multiplanar re-formation imaging is included as well. The study was interpreted with the aid of [employer], an FDA approved computer-aided detection (CAD) software program, on a dedicated breast MRI work station. The gadolinium enhancement dose is 18 mL of intravenous ProHance. FINDINGS: There is a moderate pattern of symmetric scattered fibroglandular elements. There is an elongate T2 hyperintense postoperative hematoma in the superior aspect 12-o'clock position right breast with some adjacent post surgical susceptibility artifacts. There is minimal hyperemia in this region but no suspicious enhancement and/or washout is seen. T1- and T2-weighted scans show no suspicious morphologic abnormality in either breast. Subtraction images are unremarkable. IMPRESSION: Expected recent post excisional biopsy and needle biopsy changes right superior breast. BIRADS category 2 benign findings. No suspicious abnormality. Electronically Signed by José Miguel Waddell MD 03/07/2020 04:15 P
== END ==
LOC: M RAD 12:28
PROVIDERS: ATTEND Surgery
DX: N60.91 Unspecified benign mammary dysplasia of right breast (principal)
CPT/HCPCS: A9576; C8908

== ENCOUNTER → 2020-05-24 | Outpatient (CLI) | payer OTHER ==
[~2020-05-24] MED LIST changes: -ASPI81TA85 PO; +ASPI81TA86 PO; -PROHANCE 279.3MG/ML 15ML VIAL As Ordered ONE; -PROHANCE 279.3MG/ML 5ML VIAL As Ordered ONE
--- NOTE | 2020-05-24 11:35 | REPVR ---
PROCEDURE INFORMATION: Exam: CT Neck Without Contrast Exam date and time: 05/24/2020 10:41 AM Age: 64 years old Clinical indication: Neck pain; Additional info: Swelling, mass in the neck TECHNIQUE: Imaging protocol: Computed tomography images of the neck without contrast. Radiation optimization: All CT scans at this facility use at least one of these dose optimization techniques: automated exposure control; mA and/or kV adjustment per patient size (includes targeted exams where dose is matched to clinical indication); or iterative reconstruction. COMPARISON: CT Neck with contrast 10/06/2019 9:56 AM FINDINGS: Nasopharynx: Unremarkable. Oropharynx: Unremarkable. No significant tonsillar enlargement. Hypopharynx: Unremarkable. Larynx: Unremarkable. Normal epiglottis. Retropharyngeal space: Unremarkable. Submandibular/Parotid glands: Normal. Glands are normal in size. Thyroid: Normal. No enlarged or calcified nodules. Lymph nodes: There are small, scattered multilevel cervical lymph nodes. There is a dominant right supraclavicular lymph node measuring 1.7 x 1.6 x 1.7 cm, Trachea: Visualized trachea is unremarkable. Lungs: Unremarkable as visualized. Bones/joints: There are coarse ventral bridging osteophytes at C4/5 and C5/6, compatible with DISH. There is fusion of the C2 and C3 bodies and posterior elements. Soft tissues: Unremarkable. No significant soft tissue swelling. IMPRESSION: Persistent isolated tissue sampling may be of benefit in this case. enlarged right supraclavicular lymph node. Electronically signed by: Rhona Schwarz On 05/24/2020 11:34:51 AM
== END ==
LOC: M RAD 10:37
PROVIDERS: ATTEND Otolaryngology
DX: R59.0 Localized enlarged lymph nodes (principal)

== ENCOUNTER → 2020-05-30 | Outpatient (REF) | payer OTHER ==
[2020-05-30 14:56] LABS: HEPATITIS A ANTIBODY IGM NEGATIVE (NEGATIVE); HEPATITIS B CORE ANTIBODY IGM NEGATIVE (NEGATIVE); HEPATITIS B SURFACE ANTIGEN NEGATIVE (NEGATIVE); HEPATITIS C VIRUS ABY INDEX 0.1 INDEX (<0.8)
== END ==
LOC: M LAB REF 11:10
PROVIDERS: ATTEND Internal Medicine
DX: R74.8 Abnormal levels of other serum enzymes (principal)

== ENCOUNTER → 2020-09-16 | Outpatient (CLI) | payer OTHER ==
--- NOTE | 2020-09-16 09:49 | REPMRS ---
Patient History The patient states she had a clinical breast exam in 09/2019 Patient is postmenopausal, has history of high-risk lesion on a previous biopsy at age 63, and is nulliparous. No known family history of cancer. Radio exam Breast Specimen of the right breast, November 17, 2019. High risk radio exam breast specimen of the right breast, October 12, 2019. High risk stereotatic loc for ea lesion of the right breast, October 12, 2019. Benign stereotatic loc for ea lesion of the right breast, September 27, 2019. Took hormonal contraceptives for 1 year. Took estrogen for 8 years. 3D TOMOSYNTHESIS WAS PERFORMED. The [facility] lifetime risk for breast cancer is 8.5%. Volpara breast density b. Digital Woman Screen Mammo: September 16, 2020 - Exam #: [id number] Bilateral CC and MLO view(s) were taken. Technologist: Scarlet Álvarez, Technologist Prior study comparison: September 15, 2019, right breast digital mammo diagnostic unilateral, performed at [facility]. September 07, 2019, bilateral digital woman screen mammo performed at [facility]. FINDINGS: The breast tissue is heterogeneously dense. This may lower the sensitivity of mammography. There is a fairly symmetric fibroglandular pattern in both breasts. There has been no interval development of masses, areas of architectural distortion or clusters of microcalcifications typical of malignancy. The assymmetric density on the right remains unchanged. No significant changes when compared with prior studies. Assessment: BI-RADS/ACR category 2 mammogram. Benign Findings. Recommendation Routine screening mammogram of both breasts in 1 year (for women over age 40). This mammogram was interpreted with the aid of an FDA-approved computer-aided dectection system. Electronically Signed By: Emilio Vu MD 09/16/20 0949
== END ==
LOC: M WHC 08:48
PROVIDERS: ATTEND Surgery
DX: Z12.39 Encounter for other screening for malignant neoplasm of breast (principal); N60.91 Unspecified benign mammary dysplasia of right breast

== ENCOUNTER → 2020-09-16 | Outpatient (REF) | payer OTHER | LOC: M LAB REF 16:25 | PROVIDERS: ATTEND Internal Medicine | DX: N39.0 Urinary tract infection, site not specified (principal) ==

== ENCOUNTER → 2020-10-18 | Outpatient (REF) | payer OTHER | LOC: M LAB REF 16:18 | PROVIDERS: ATTEND Internal Medicine | DX: N39.0 Urinary tract infection, site not specified (principal) ==

== ENCOUNTER → 2020-11-26 | Outpatient (REF) | payer OTHER | LOC: M LAB REF 16:31 | PROVIDERS: ATTEND Internal Medicine | DX: N30.20 Other chronic cystitis without hematuria (principal) ==

== ENCOUNTER → 2021-01-17 | Outpatient (CLI) | payer OTHER ==
[~2021-01-17] MED LIST changes: +METH1ADH5 TP; -SALOPAD4 TP
--- NOTE | 2021-01-17 09:55 | REP ---
INDICATION: FREQUENT UTI AND HX OF KIDNEY STONES COMPARISON: 11/15/2018 TECHNIQUE: Axial noncontrast images from the lung bases to the pubic symphysis with coronal and sagittal reformations. This CT examination was performed using the following dose reduction techniques: Automated exposure control, adjustment of mA and/or kv according to the patient's size, and use of iterative reconstruction technique. FINDINGS: Lung bases are clear. Visualized heart and pericardium normal. Liver, spleen, pancreas, gallbladder, bilateral adrenal glands and right kidney are normal. Left kidney includes 8 mm nonobstructing renal calculus. The enteric system is unremarkable and without obstruction or acute inflammatory process. Normal terminal ileum and appendix identified in the right lower quadrant. Few scattered diverticula noted without acute diverticulitis. Pelvis demonstrates normal bladder and evidence for prior hysterectomy. No ascites. No free air. No adenopathy. No focal inflammatory stranding. Abdominal aorta without aneurysm. Musculoskeletal structures are intact and without acute osseous abnormality. IMPRESSION: 8 mm nonobstructing left renal calculus. Few scattered colonic diverticula without acute diverticulitis. <Electronically signed by Enoch Espinosa > 01/17/21 [id number]
== END ==
LOC: M RAD 09:28
PROVIDERS: ATTEND Nurse Practitioner Women's Health
DX: N20.0 Calculus of kidney (principal); K57.90 Diverticulosis of intestine, part unspecified, without perforation or abscess without bleeding; N39.0 Urinary tract infection, site not specified; Z87.442 Personal history of urinary calculi

== ENCOUNTER → 2021-02-27 | Outpatient (CLI) | payer OTHER ==
[~2021-02-27] MED LIST changes: +CHLO25TA PO; -METH1ADH5 TP; +METH1ADH6 TP; +TAMO20TA8 PO
--- NOTE | 2021-02-27 13:24 | REP ---
INDICATION: CALCULUS OF KIDNEY - LABS, EKG FIRST. COMPARISON: 11/06/2019 FINDINGS: The cardiomediastinal silhouette is within normal limits and unchanged. The pleural angles are again seen to be sharp. Seen only on the frontal view in the right cardiophrenic angle there is a small sub cm sized nodular density. This was not present on the prior exam the cannot say with certainty whether not the prior lung base images obtained during CT of the abdomen and pelvis 01/17/2021 covered this area. The osseous structures stable and intact. IMPRESSION: Small new nodule seen in the right lung base cardio phrenic angle as described above. This potentially represents an actual nodule or even a pulmonary vessel seen En Face. CT examination the chest is warranted. <Electronically signed by Conrad Ballard > 02/27/21 [id number]
[2021-02-27 13:30] LABS: HEMATOCRIT 43.9 % (36.0-47.0); HEMOGLOBIN 13.8 g/dl (12.0-15.5); MEAN CORPUSCULAR HEMOGLOBIN 29.3 pg (27.0-33.0); MEAN CORPUSCULAR HGB CONC 31.4 g/dl (32.0-36.5); MEAN CORPUSCULAR VOLUME 93.2 fl (80.0-96.0); PLATELET COUNT, AUTOMATED 191 10^3/uL (150-450); RED BLOOD COUNT 4.71 10^6/uL (4.00-5.40); WHITE BLOOD COUNT 8.4 10^3/uL (4.0-10.0)
[2021-02-27 13:45] LABS: APPEARANCE, URINE HAZY (CLEAR); BACTERIA, URINE AUTO 1+ (NEGATIVE); BILIRUBIN, URINE AUTO NEGATIVE (NEGATIVE); BLOOD, URINE BLOOD 3+ (NEGATIVE); COLOR, URINE YELLOW (YELLOW); GLUCOSE, URINE (UA) AUTO NEGATIVE (NEGATIVE); KETONE, URINE AUTO NEGATIVE (NEGATIVE); LEUKOCYTE ESTERASE, URINE AUTO 1+ (NEGATIVE); NITRITE, URINE AUTO POSITIVE (NEGATIVE); PROTEIN, URINE AUTO 2+ mg/dL (NEGATIVE); RBC, URINE AUTO 72 /HPF (0-3); SPECIFIC GRAVITY URINE AUTO 1.013 (1.002-1.035); SQUAMOUS EPITHELIAL CELL UR AU 0 /HPF (0-6); UROBILINOGEN, URINE AUTO 0.2 mg/dL (0.0-2.0); WBC, URINE AUTO 72 /HPF (0-3)
[2021-02-27 13:51] LABS: BLOOD UREA NITROGEN 18 MG/DL (7-18); CALCIUM LEVEL 9.2 MG/DL (8.8-10.2); CARBON DIOXIDE LEVEL 27 MEQ/L (21-32); CHLORIDE LEVEL 110 MEQ/L (98-107); CREATININE FOR GFR 0.93 MG/DL (0.55-1.30); GLOMERULAR FILTRATION RATE > 60.0 (>45); GLUCOSE, FASTING 102 MG/DL (70-100); POTASSIUM SERUM 4.5 MEQ/L (3.5-5.1); SODIUM LEVEL 142 MEQ/L (136-145)
[2021-02-27 13:52] LABS: INR 0.87
[2021-02-27 13:53] LABS: PARTIAL THROMBOPLASTIN TIME 28.1 SECONDS (24.2-38.5)
--- NOTE | 2021-02-27 16:47 | ECGEPIP ---
[facility] Test Date: 2021-02-27 Pat Name: SAVANNAH ROBLEDO Department: Room: - Gender: Female [employer] Man: nakul : 1955 Requested By: Kenzie VILLARREAL Order Number: [id number] Reading MD: Rafael Dupree Measurements Intervals [place] Rate: 72 P: 32 OH: 142 QRS: 1 QRSD: 80 T: 36 QT: 384 QTc: 420 Interpretive Statements Normal sinus rhythm Increased heart rate compared with 02/05/2016. Electronically Signed on 02-27-2021 16:47:12 EDT by Rafael Dupree
== END ==
LOC: M LAB 12:02
PROVIDERS: ATTEND Nurse Practitioner Women's Health
DX: Z01.818 Encounter for other preprocedural examination (principal); N20.0 Calculus of kidney; R91.8 Other nonspecific abnormal finding of lung field

== ENCOUNTER → 2021-03-01 | Outpatient (CLI) | payer OTHER | LOC: M LABSMTC 08:37 | PROVIDERS: ATTEND Anesthesiology | DX: Z11.52 Encounter for screening for COVID-19 (principal) ==

== ENCOUNTER 2021-03-06 06:42 | Day surgery (SDC) | payer OTHER ==
[~2021-03-06] VITALS: Ht 170.2 cm; Wt 92.4 kg
[~2021-03-06 06:42] MED LIST changes: +LIDOCAINE 1% MDV 20ML VIAL SQ PRN; +LR 1,000 ML IV ONE
[2021-03-06] MEDS ORDERED: BACTDSTA (07:43)
--- NOTE | 2021-03-06 08:08 | REP ---
INDICATION: KIDNEY STONE KUB BEFORE SDC COMPARISON: None. TECHNIQUE: Supine view of the abdomen and pelvis. FINDINGS: 8 mm left renal calculus is suspected. No further obvious urinary tract calcifications are appreciated. Bowel gas pattern is nonspecific. No organomegaly. No foreign body. Skeletal structures demonstrate age-related changes. IMPRESSION: 8 mm nonobstructing left renal calculus. <Electronically signed by Enoch Espinosa > 03/06/21 [id number]
[2021-03-06] MEDS ORDERED: LIDOCAINE 2% 100MG/5ML SDV (FOR ANES.) As Ordered ONE (08:27)
[2021-03-06] MEDS ORDERED: propofoL 200 MG/20 ML VIAL As Ordered ONE (08:27)
[2021-03-06] MEDS ORDERED: fentaNYL 100 MCG/2 ML INJECTION (J3010) As Ordered ONE (08:27)
[2021-03-06] MEDS ORDERED: MIDAZOLAM INJ 2MG/2ML VIAL (J2250 PER 1MG) As Ordered ONE (08:27)
[2021-03-06] MEDS ORDERED: OXYC1TAB23 PO (08:51)
[2021-03-06] MEDS ORDERED: FLOM0.4C39 PO (08:51)
[2021-03-06] MEDS ORDERED: ceFAZolin SOD 2 GM in IV 1 EA IV ONE (09:00)
--- NOTE | 2021-03-06 09:32 | RO ---
OPERATIVE NOTE DATE OF OPERATION: 03/06/2021 PREOPERATIVE DIAGNOSIS: Left kidney stone. POSTOPERATIVE DIAGNOSIS: Left kidney stone. PROCEDURE: Left extracorporeal shock wave lithotripsy. SURGEON: Olman Malin MD MAINTENANCE CLERK: None. ANESTHESIA: MAC. OPERATIVE INDICATIONS: This is a 65-year-old female who was found to have an approximately 7-8 mm left kidney stone. She was brought to the operating room today for treatment. DESCRIPTION OF PROCEDURE: The patient was brought to the operating room and MAC anesthesia was administered. Prophylactic antibiotics were infused. She was then placed in the supine position in preparation for left-sided extracorporeal shock wave lithotripsy. Fluoroscopy was utilized to monitor stone position and fragmentation throughout the procedure. Shock waves were then delivered to the left-sided kidney stone ungated. There were no arrhythmias. The stone did appear to fragment well. After 2500 shocks, the procedure was concluded. The patient was then awakened from anesthesia and transported to the recovery room in stable condition. ESTIMATED BLOOD LOSS: 0 mL. COMPLICATIONS: None. SPECIMENS: None. PLAN: The patient will follow-up in the urology clinic in a few weeks with imaging prior to assess for residual stone burden.
[2021-03-06] MEDS ORDERED: PERCOCET 5MG/325MG TAB PO PRN (09:40)
[2021-03-06 10:01] VITALS: BP 148/67
== END 2021-03-06 10:01 | disposition home or self-care (01) ==
LOC: M RAD 06:42 → M SDC 06:42
PROVIDERS: ATTEND Urology
DX: N20.0 Calculus of kidney (principal); I10 Essential (primary) hypertension; M54.30 Sciatica, unspecified side; C50.911 Malignant neoplasm of unspecified site of right female breast; N30.20 Other chronic cystitis without hematuria; B96.20 Unspecified Escherichia coli [E. coli] as the cause of diseases classified elsewhere; E78.00 Pure hypercholesterolemia, unspecified; M76.62 Achilles tendinitis, left leg; Z79.899 Other long term (current) drug therapy; Z79.82 Long term (current) use of aspirin; Z88.8 Allergy status to other drugs, medicaments and biological substances
CPT/HCPCS: 50590; 74018; J0690; J2250; J3010

== ENCOUNTER → 2021-03-19 | Outpatient (CLI) | payer OTHER ==
[~2021-03-19] MED LIST changes: +BACTDSTA; +FLOM0.4C39 PO; -LIDOCAINE 1% MDV 20ML VIAL SQ PRN; -LR 1,000 ML IV ONE; +OXYC1TAB23 PO; +PROHANCE 279.3MG/ML 15ML VIAL As Ordered ONE; +PROHANCE 279.3MG/ML 5ML VIAL As Ordered ONE
--- NOTE | 2021-03-19 14:24 | REP ---
INDICATION: DUCTAL HYPERPLASIA. COMPARISON: Comparison breast MRI study is dated March 07, 2020. Comparison mammography September 16, 2020. TECHNIQUE: Three Emma MRI imaging was performed with a dedicated breast coil. Axial, coronal, and sagittal T1 and T2 weighted scans were obtained with and without fat saturation in the usual fashion. The study includes dynamically acquired post gadolinium-enhanced imaging with image subtraction. Maximum intensity projection and multi planar reformation imaging is included as well. This study is interpreted with the aid of [employer], an FDA approved computer aided detection (CAD) software program, on a dedicated breast MRI workstation. The gadolinium enhancement dose is 18 mL of intravenous ProHance. FINDINGS: There is a moderate amount of fibroglandular tissue bilaterally corresponding with the mammographic pattern. There is mild background parenchymal enhancement. There is no evidence of axillary lymphadenopathy or significant breast cystic change. High-resolution pre and post-contrast T1 and T2 weighted scans show no suspicious morphologic abnormality in either breast. Dynamically acquired sequential postcontrast images show no suspicious area of enhancement and washout kinetics in either breast to suggest malignancy. Subtraction images show no additional abnormality. There is an area of postsurgical fibrosis in the right breast superiorly unchanged. This postoperative changes less pronounced than on the prior MRI study. IMPRESSION: BI-RADS category 2 benign bilateral breast MRI findings. <Electronically signed by Arron Waddell > 03/19/21 [id number]
== END ==
LOC: M RAD 10:37
PROVIDERS: ATTEND Surgery
DX: N60.91 Unspecified benign mammary dysplasia of right breast (principal); Z12.39 Encounter for other screening for malignant neoplasm of breast; Z98.890 Other specified postprocedural states
CPT/HCPCS: A9576; C8908

== ENCOUNTER → 2021-03-24 | Outpatient (CLI) | payer OTHER ==
[~2021-03-24] MED LIST changes: +ISOVUE-370 76% 100ML VIAL ONE; -PROHANCE 279.3MG/ML 15ML VIAL As Ordered ONE; -PROHANCE 279.3MG/ML 5ML VIAL As Ordered ONE
--- NOTE | 2021-03-24 15:53 | REP ---
INDICATION: NODULE RT LUNG SEEN ON CXR. COMPARISON: Chest x-ray 02/27/2021. TECHNIQUE: Precontrast scanning through the chest with bolus of 75 mL Isovue 370 and rescanning through the chest with both coronal and sagittal reconstructions. FINDINGS: The lung buck are well inflated. There is no pleural effusion, pleural thickening or calcified pleural plaque. I see no parenchymal nodules. There are calcifications in costochondral junctions anteriorly on both sides. The heart is not enlarged. There is no pericardial thickening or effusion. No pathologic sized mediastinal, hilar, axillary or supraclavicular adenopathy. Bone windows show lumbar spondylosis with marginal osteophytes throughout but no compression deformity or destructive lesions. Sternum, manubrium, clavicles, visualized scapula, humeral heads and ribs are without any acute finding. Upper abdomen shows no evidence for hiatal hernia. There is no hepatosplenomegaly, focal lesion, biliary dilatation or ascites. Gallbladder without calcified stone or mass. Pancreas, adrenal glands in the visible portions of kidneys are without acute finding. There is parapelvic cyst in the upper pole of the left kidney. No aortic aneurysm. Just a few calcifications are seen without pathologic sized upper abdominal adenopathy. The aorta is without aneurysm. IMPRESSION: 1. No CT evidence of pulmonary nodule in the right lung base. There is a costal cartilaginous calcification anteriorly at the right base on CT which would project in this region and is the most likely source for the radiographic finding. Lungs are clear. 2. Heart, mediastinal contents and upper abdomen grossly unremarkable. No acute bony finding. <Electronically signed by Shaun Larson > 03/24/21 [id number]
== END ==
LOC: M PLAIMG 13:36
PROVIDERS: ATTEND Internal Medicine
DX: R91.1 Solitary pulmonary nodule (principal)
CPT/HCPCS: 71270; Q9967

== ENCOUNTER → 2021-03-26 | Outpatient (CLI) | payer OTHER ==
[~2021-03-26] MED LIST changes: -ISOVUE-370 76% 100ML VIAL ONE
--- NOTE | 2021-03-26 11:56 | REP ---
INDICATION: CALCULUS OF KIDNEY. COMPARISON: 03/06/2021. TECHNIQUE: AP view abdomen and pelvis. FINDINGS: The bowel gas pattern is normal with no obstruction. Multiple phleboliths are seen in the pelvis. The previously noted 8 mm calculus of the lower pole the left kidney is no longer visualized. There may be a residual 3 mm calcification at that location. Evaluation is limited due to overlying bowel gas and fecal material. There are degenerative changes of the spine and hips. IMPRESSION: Possible 3 mm calcification at the site of the previously noted calculus lower pole left kidney. <Electronically signed by Emilio Vu > 03/26/21 1155
== END ==
LOC: M RAD 11:16
PROVIDERS: ATTEND Nurse Practitioner Women's Health
DX: N20.0 Calculus of kidney (principal)

== ENCOUNTER → 2021-03-27 | Outpatient (REF) | payer OTHER | LOC: M SMT 12:55 | PROVIDERS: ATTEND Nurse Practitioner Women's Health | DX: N20.0 Calculus of kidney (principal) ==

== ENCOUNTER → 2021-03-27 | Outpatient (REF) | payer OTHER ==
[2021-03-27 13:00] LABS: APPEARANCE, URINE CLEAR (CLEAR); BACTERIA, URINE AUTO NEGATIVE (NEGATIVE); BILIRUBIN, URINE AUTO NEGATIVE (NEGATIVE); BLOOD, URINE BLOOD NEGATIVE (NEGATIVE); COLOR, URINE YELLOW (YELLOW); GLUCOSE, URINE (UA) AUTO NEGATIVE (NEGATIVE); KETONE, URINE AUTO NEGATIVE (NEGATIVE); LEUKOCYTE ESTERASE, URINE AUTO NEGATIVE (NEGATIVE); NITRITE, URINE AUTO NEGATIVE (NEGATIVE); PROTEIN, URINE AUTO NEGATIVE (NEGATIVE); RBC, URINE AUTO 1 /HPF (0-3); SPECIFIC GRAVITY URINE AUTO 1.016 (1.002-1.035); SQUAMOUS EPITHELIAL CELL UR AU 0 /HPF (0-6); UROBILINOGEN, URINE AUTO 0.2 mg/dL (0.0-2.0); WBC, URINE AUTO 1 /HPF (0-3)
== END ==
LOC: M SMT 12:44
PROVIDERS: ATTEND Nurse Practitioner Women's Health
DX: N39.0 Urinary tract infection, site not specified (principal)

== ENCOUNTER → 2021-09-17 | Outpatient (CLI) | payer OTHER | LOC: M WHC 10:49 | PROVIDERS: ATTEND Surgery | DX: Z12.31 Encounter for screening mammogram for malignant neoplasm of breast (principal); N60.91 Unspecified benign mammary dysplasia of right breast ==

== ENCOUNTER → 2022-03-17 | Outpatient (CLI) | payer OTHER ==
[~2022-03-17] MED LIST changes: -OLOP0.1D OU; +OLOP5DRO16 OU
[2022-03-17 17:55] LABS: BLOOD UREA NITROGEN 24 MG/DL (7-18); CALCIUM LEVEL 9.6 MG/DL (8.8-10.2); CARBON DIOXIDE LEVEL 28 MEQ/L (21-32); CHLORIDE LEVEL 105 MEQ/L (98-107); CREATININE FOR GFR 0.92 MG/DL (0.55-1.30); GLOMERULAR FILTRATION RATE > 60.0 (>45); GLUCOSE, FASTING 78 MG/DL (70-100); SODIUM LEVEL 138 MEQ/L (136-145)
== END ==
LOC: M PLALAB 13:48
PROVIDERS: ATTEND Nurse Practitioner Women's Health
DX: Z01.812 Encounter for preprocedural laboratory examination (principal)

== ENCOUNTER → 2022-03-27 | Outpatient (CLI) | payer OTHER ==
[~2022-03-27] MED LIST changes: +PROHANCE 279.3MG/ML 15ML VIAL As Ordered ONE; +PROHANCE 279.3MG/ML 5ML VIAL As Ordered ONE
== END ==
LOC: M RAD 12:45
PROVIDERS: ATTEND Nurse Practitioner Women's Health
DX: Z12.31 Encounter for screening mammogram for malignant neoplasm of breast (principal); N60.91 Unspecified benign mammary dysplasia of right breast
CPT/HCPCS: A9576; C8908

== ENCOUNTER → 2022-09-21 | Outpatient (CLI) | payer OTHER ==
[~2022-09-21] MED LIST changes: -PROHANCE 279.3MG/ML 15ML VIAL As Ordered ONE; -PROHANCE 279.3MG/ML 5ML VIAL As Ordered ONE
== END ==
LOC: M WHC 12:12
PROVIDERS: ATTEND Internal Medicine
DX: M85.851 Other specified disorders of bone density and structure, right thigh (principal); M85.852 Other specified disorders of bone density and structure, left thigh

== ENCOUNTER → 2022-09-21 | Outpatient (CLI) | payer OTHER | LOC: M WHC 12:17 | PROVIDERS: ATTEND Obstetrics & Gynecology | DX: Z12.31 Encounter for screening mammogram for malignant neoplasm of breast (principal) ==

== ENCOUNTER → 2022-12-07 | Outpatient (REF) | payer MEDICARE, OTHER ==
[~2022-12-07] MED LIST changes: -OLOP5DRO16 OU; +OLOP5DRO17 OU
== END ==
LOC: M PLALAB 16:46
PROVIDERS: ATTEND Nurse Practitioner Family
DX: Z12.4 Encounter for screening for malignant neoplasm of cervix (principal)

== ENCOUNTER → 2023-04-06 | Outpatient (CLI) | payer MEDICARE, OTHER ==
[~2023-04-06] MED LIST changes: -HM S0.65; +SALI0.6531
[2023-04-06 16:40] LABS: BLOOD UREA NITROGEN 19 MG/DL (9-23); CALCIUM LEVEL 9.4 MG/DL (8.3-10.6); CARBON DIOXIDE LEVEL 26 MMOL/L (20-31); CHLORIDE LEVEL 104 MMOL/L (98-107); CREATININE FOR GFR 0.82 MG/DL (0.55-1.30); GLOMERULAR FILTRATION RATE > 60.0 (>45); GLUCOSE, FASTING 82 MG/DL (74-106); POTASSIUM SERUM 4.1 MMOL/L (3.5-5.1); SODIUM LEVEL 140 MMOL/L (136-145)
== END ==
LOC: M PLALAB 14:27
PROVIDERS: ATTEND Nurse Practitioner Women's Health
DX: Z01.812 Encounter for preprocedural laboratory examination (principal); N60.91 Unspecified benign mammary dysplasia of right breast; Z12.39 Encounter for other screening for malignant neoplasm of breast

== ENCOUNTER → 2023-04-13 | Outpatient (CLI) | payer MEDICARE, OTHER ==
[~2023-04-13] MED LIST changes: +PROHANCE 279.3MG/ML 15ML VIAL As Ordered ONE; +PROHANCE 279.3MG/ML 5ML VIAL As Ordered ONE
== END ==
LOC: M RAD 12:36
PROVIDERS: ATTEND Nurse Practitioner Women's Health
DX: N60.91 Unspecified benign mammary dysplasia of right breast (principal); Z12.39 Encounter for other screening for malignant neoplasm of breast
CPT/HCPCS: A9576; C8908

== ENCOUNTER 2023-09-22 11:14 | Day surgery (SDC) | payer MEDICARE, OTHER ==
[~2023-09-22] VITALS: Ht 171.4 cm; Wt 93.0 kg
[~2023-09-22 11:14] MED LIST changes: +CHLO125TA PO; +NS 1,000 ML IV ONE; +PRES1CAP PO; -PROHANCE 279.3MG/ML 15ML VIAL As Ordered ONE; -PROHANCE 279.3MG/ML 5ML VIAL As Ordered ONE; +THERTAB52 PO; +VITA100093 PO
[2023-09-22] MEDS ORDERED: propofoL 200 MG/20 ML VIAL As Ordered ONE (13:56)
[2023-09-22 14:12] VITALS: TEMP 98.8
[2023-09-22 14:27] VITALS: BP 127/57; O2SAT 97
== END 2023-09-22 14:27 | disposition home or self-care (01) ==
LOC: M OPP 11:14
PROVIDERS: ATTEND Internal Medicine Gastroenterology
DX: Z12.11 Encounter for screening for malignant neoplasm of colon (principal); Z86.010 Personal history of colon polyps; K64.0 First degree hemorrhoids; K57.30 Diverticulosis of large intestine without perforation or abscess without bleeding; Z79.02 Long term (current) use of antithrombotics/antiplatelets; Z79.51 Long term (current) use of inhaled steroids; Z79.82 Long term (current) use of aspirin; Z79.810 Long term (current) use of selective estrogen receptor modulators (SERMs); Z79.899 Other long term (current) drug therapy; Z88.8 Allergy status to other drugs, medicaments and biological substances

== ENCOUNTER → 2023-09-23 | Outpatient (CLI) | payer MEDICARE, OTHER ==
[~2023-09-23] MED LIST changes: -NS 1,000 ML IV ONE
== END ==
LOC: M WHC 12:45
PROVIDERS: ATTEND Nurse Practitioner Women's Health
DX: Z12.31 Encounter for screening mammogram for malignant neoplasm of breast (principal); R92.323 Mammographic fibroglandular density, bilateral breasts

== ENCOUNTER → 2024-04-18 | Outpatient (CLI) | payer MEDICARE, OTHER ==
[~2024-04-18] MED LIST changes: +PROHANCE 279.3MG/ML 15ML VIAL ONE; +PROHANCE 279.3MG/ML 5ML VIAL ONE; +RAMI10CA64 PO; -RAMI1CAP22 PO; -RAMI1CAP26 PO; +RAMI2.5C42 PO
== END ==
LOC: M PLAIMG 12:33
PROVIDERS: ATTEND Nurse Practitioner Women's Health
DX: Z12.31 Encounter for screening mammogram for malignant neoplasm of breast (principal); N60.91 Unspecified benign mammary dysplasia of right breast; N64.89 Other specified disorders of breast
CPT/HCPCS: A9576; C8908

== ENCOUNTER → 2024-11-15 | Outpatient (CLI) | payer MEDICARE, OTHER ==
[~2024-11-15] MED LIST changes: -PROHANCE 279.3MG/ML 15ML VIAL ONE; -PROHANCE 279.3MG/ML 5ML VIAL ONE
== END ==
LOC: M WHC 12:57
PROVIDERS: ATTEND Nurse Practitioner Family
DX: Z12.31 Encounter for screening mammogram for malignant neoplasm of breast (principal); R92.323 Mammographic fibroglandular density, bilateral breasts

== ENCOUNTER → 2024-11-15 | Outpatient (CLI) | payer MEDICARE, OTHER | LOC: M WHC 12:58 | PROVIDERS: ATTEND Nurse Practitioner Family | DX: Z13.820 Encounter for screening for osteoporosis (principal); M85.851 Other specified disorders of bone density and structure, right thigh; M85.852 Other specified disorders of bone density and structure, left thigh ==

== ENCOUNTER → 2024-11-15 | Outpatient (REF) | payer MEDICARE, OTHER ==
[2024-11-18 13:01] LABS: HPV APTIMA Not Detected (Not Detected)
== END ==
LOC: M SFHCWAGY 17:47
PROVIDERS: ATTEND Nurse Practitioner Family
DX: Z12.72 Encounter for screening for malignant neoplasm of vagina (principal); Z11.51 Encounter for screening for human papillomavirus (HPV)
CPT/HCPCS: 87624; G0123

== ENCOUNTER → 2025-06-04 | Outpatient (CLI) | payer MEDICARE, OTHER ==
[~2025-06-04] MED LIST changes: -FLOM0.4C39 PO; +PROHANCE 279.3MG/ML 15ML VIAL ONE; +PROHANCE 279.3MG/ML 5ML VIAL ONE; +TAMS-18 PO
== END ==
LOC: M PLAIMG 13:56
PROVIDERS: ATTEND Surgery
DX: N60.89 Other benign mammary dysplasias of unspecified breast (principal); Z12.31 Encounter for screening mammogram for malignant neoplasm of breast; Z91.89 Other specified personal risk factors, not elsewhere classified; R92.8 Other abnormal and inconclusive findings on diagnostic imaging of breast
CPT/HCPCS: A9576; C8908